=== PATIENT | female | born 1990 | race Caucasian/White ===

== ENCOUNTER 2016-10-28 01:42 | Inpatient (IN) | payer BC ==
[~2016-10-28] VITALS: Ht 162.6 cm; Wt 68.0 kg
[2016-10-28] MEDS ORDERED: PRENTAB26 PO (02:36)
[2016-10-28 02:37] VITALS: Ht 162.6 cm; Wt 68.0 kg
[2016-10-28] MEDS ORDERED: LACTATED RINGER'S 1000ML 1,000 ML IV PRN (02:52)
[2016-10-28] MEDS ORDERED: LACTATED RINGER'S 1000ML 1,000 ML IV SCH ×2 (02:52→09:39)
[2016-10-28] MEDS ORDERED: PENICILLIN G POTASSIUM IV 3 MU in DEXTROSE 5% 100ML 100 ML IV PRN (03:00)
[2016-10-28] MEDS ORDERED: PENICILLIN G POTASSIUM IV 6 MU in DEXTROSE 5% 250ML 250 ML IV STA (03:05)
[2016-10-28 03:12] LABS: HEMATOCRIT 40.8 % (37-47); MEAN CELL VOLUME 88.1 fL (80-100); MEAN CORPUSCULAR HEMOGLOBIN 30.5 pg (25-34); MEAN CORPUSCULAR HGB CONC 34.6 g/dl (32-36); PLATELET COUNT 186 K/uL (130-400); RED BLOOD COUNT 4.63 M/uL (4.2-5.4); WHITE BLOOD COUNT 14.93 K/uL (4.8-10.8)
[2016-10-28] MEDS ORDERED: EpHEDrine SULFATE INJ 50 MG/ML AMP ONE (04:23)
[2016-10-28] MEDS ORDERED: FENTANYL CITRATE INJ 50 MCG/1 ML 2 ML VIAL ONE (04:23)
[2016-10-28] MEDS ORDERED: FENTANYL 2MCG/ML ROPIV 1.25MG/ML 100ML BAG EPI ONE (04:23)
[2016-10-28] MEDS ORDERED: BUPIVACAINE 0.25% 30 ML VIAL ONE (04:23)
[2016-10-28] MEDS ORDERED: LACTATED RINGER'S 1000ML 500 ML IV PRN (04:24)
[2016-10-28] MEDS ORDERED: NALOXONE HCL INJ 1 MG in SODIUM CHLORIDE 0.9% 1000ML 1,000 ML IV PRN (04:24)
[2016-10-28] MEDS ORDERED: NALOXONE HCL INJ 0.4 MG/1 ML VIAL/CARP IV PRN (04:30)
[2016-10-28] MEDS ORDERED: ONDANSETRON INJ 2 MG/ML 2 ML VIAL IV PRN (04:30)
[2016-10-28] MEDS ORDERED: EpHEDrine SULFATE INJ 50 MG/ML AMP IV PRN (04:30)
[2016-10-28] MEDS ORDERED: FENTANYL 2MCG/ML ROPIV 1.25MG/ML 100ML BAG EPI PRN (04:30)
[2016-10-28] MEDS ORDERED: NALBUPHINE HCL INJ 10 MG/ML AMP IV PRN (04:30)
[2016-10-28] MEDS ORDERED: DiphenhydrAMINE HCL 50 MG/ML VIAL IV PRN (04:30)
--- NOTE | 2016-10-28 08:24 | Progress Note ---
Progress Note Date of Service Oct 28, 2016. Progress Note patient admitted in active labor. GBS is positive. FHT Cat 1. Patient received 2 doses of antibiotics and has an epidural. She is now completely dilated and is laboring down and will be starting to push soon.
[2016-10-28] MEDS ORDERED: OXYTOCIN 30 UNITS/500ML NSS IV ONE (08:57)
[2016-10-28] MEDS ORDERED: HYDROCORTISONE ACETATE 25 MG SUPP PR PRN (09:45)
[2016-10-28] MEDS ORDERED: SUPERCREAM 0.870 % 15GM JAR EXT PRN (09:45)
[2016-10-28] MEDS ORDERED: LANOLIN OINT EXT PRN ×2 (09:45)
[2016-10-28] MEDS ORDERED: OXYTOCIN 30 UNITS/500ML NSS IV PRN (09:45)
[2016-10-28] MEDS ORDERED: BENZOCAINE 20% AER SPR 82.5 GM CAN EXT PRN (09:45)
[2016-10-28] MEDS ORDERED: ACETAMINOPHEN/CODEINE 300/30MG TAB PO PRN ×2 (09:45)
[2016-10-28] MEDS ORDERED: ACETAMINOPHEN 325 MG TAB PO PRN (09:45)
[2016-10-28] MEDS ORDERED: IBUPROFEN 600 MG TAB PO PRN (09:45)
--- NOTE | 2016-10-28 09:46 | Vaginal Delivery Summary ---
Vaginal Delivery Summary Delivery Note live male over intact perineum LOS Apgars 9/10. Delayed cord clamping and cord blood obtained. Placenta delivered spontaneously and intact. No tears. EBL 200 ml. Final sponge and instrument count are correct. Mom and baby stable.
--- NOTE | 2016-10-28 12:36 | Anesthesia Procedure Note ---
Anesthesia Epidural Removal Nt Date & Time Oct 28, 2016 at 12:36 Vital Signs Pain Intensity: 0.0 Notes Mental Status: alert / awake / arousable, participated in evaluation Nausea / Vomiting: adequately controlled Pain: adequately controlled Airway Patency, RR, SpO2: stable & adequate BP & HR: stable & adequate Hydration State: stable & adequate Neuraxial Anesthesia: was administered Anesthetic Complications: no major complications apparent, pt satisfied with anesthetic care Epidural: removed without complications, with tip intact
[2016-10-28 12:50] VITALS: BP 118/69; PULSE 98; TEMP 36.8
[2016-10-28 15:15] VITALS: BP 115/74; PULSE 70; TEMP 36.7; O2SAT 98
[2016-10-28 19:40] VITALS: BP 126/84; PULSE 76; TEMP 36.8; O2SAT 99
[2016-10-28] MEDS: DOCUSATE SODIUM 100 MG CAP PO SCH (19:48)
[2016-10-29 01:20] VITALS: BP 128/83; PULSE 72; TEMP 36.7
[2016-10-29 04:10] VITALS: BP 129/86; PULSE 71; TEMP 36.7
[2016-10-29 06:49] LABS: HEMATOCRIT 34.5 % (37-47)
[2016-10-29 08:04] VITALS: BP 125/83; PULSE 61; TEMP 36.7; O2SAT 97
[2016-10-29] MEDS: DOCUSATE SODIUM 100 MG CAP PO SCH ×2 (08:26→20:12)
[2016-10-29] MEDS: FERROUS SULFATE 325 MG TAB PO SCH (08:26)
[2016-10-29] MEDS: PRENATAL VITAMIN TAB PO SCH (08:26)
--- NOTE | 2016-10-29 08:37 | OB/GYN Progress Note ---
PA[employer]ER Progress Note Date of Service Oct 29, 2016. Subjective conversation w/ patient, physical exam Ambulation: ambulating normally Voiding: no voiding problems Passing Gas: Yes Diet Tolerance: Regular Diet Lochia: Moderate Feeding Type: Breast Feeding Review of Systems Constitutional: No fever, No chills, No sweats, No weight loss, No weakness, No fatigue, No problem reported Respiratory: No cough, No sputum, No wheezing, No shortness of breath, No dyspnea on exertion, No dyspnea at rest, No hemoptysis, No problem reported Cardiac: No chest pain, No orthopnea, No PND, No edema, No claudication, No palpitations, No problem reported Breast: No see HPI, No breast lump, No change in shape, No nipple discharge, No breast pain, No problem reported Abdomen: No pain, No nausea, No vomiting, No diarrhea, No constipation, No GI bleeding, No problem reported Female : No see HPI, No dysuria, No urinary frequency, No hematuria, No incontinence, No abnormal vaginal bleeding, No vaginal discharge, No problem reported Objective Vital Signs Date Time Temp Pulse Resp B/P (MAP) Pulse Ox O2 Delivery O2 Flow Rate FiO2 10/29/16 04:10 36.7 71 16 129/86 (100) 10/29/16 01:20 Room Air 10/29/16 01:20 36.7 72 18 128/83 (98) Room Air 10/28/16 19:40 36.8 76 16 126/84 (98) 99 Room Air 10/28/16 15:15 Room Air 10/28/16 15:15 36.7 70 16 115/74 (88) 98 Room Air 10/28/16 12:50 Room Air 10/28/16 12:50 36.8 98 16 118/69 (85) Physical Exam General Appearance: WELL-APPEARING, WD/WN, NO APPARENT DISTRESS Respiratory/Chest: chest non-tender Cardiovascular: regular rate, rhythm Abdomen: normal bowel sounds Fundus: Firm Incision Description: Clean, Dry & Intact Extremities: normal range of motion Laboratory Results Last 24 Hours Test 10/29/16 06:32 Hemoglobin 11.7 g/dL Hematocrit 34.5 % Assessment and Plan Day Number: 1 Continue Routine Care: PPD #1 Pt doing well No complaints anticipate d/c tomorrow
[2016-10-29] MEDS ORDERED: DIPHTHERIA/TETANUS/PERTUSSIS 0.5 ML SYR/VIAL IM. ONE (09:00)
[2016-10-29] MEDS ORDERED: MEASLES, MUMPS & RUBELLA VIRUS VIAL SQ. ONE (09:00)
[2016-10-29 17:10] VITALS: BP 137/86; PULSE 62; TEMP 36.9; O2SAT 98
[2016-10-29] MEDS ORDERED: BISACODYL 5 MG TABEC PO SCH (20:00)
[2016-10-29 23:45] VITALS: BP 124/77; PULSE 60; TEMP 36.8
[2016-10-30] MEDS ORDERED: BISACODYL 10 MG SUPP PR PRN (07:00)
[2016-10-30 07:27] VITALS: BP 123/83; PULSE 74; TEMP 36.4; O2SAT 96
[2016-10-30] MEDS: PRENATAL VITAMIN TAB PO SCH (07:39)
[2016-10-30] MEDS: FERROUS SULFATE 325 MG TAB PO SCH (07:39)
[2016-10-30] MEDS: DOCUSATE SODIUM 100 MG CAP PO SCH (07:39)
--- NOTE | 2016-10-30 08:39 | OB/GYN Progress Note ---
[employer] Progress Note Date of Service Oct 30, 2016. Subjective conversation w/ patient, physical exam Ambulation: ambulating normally Voiding: no voiding problems Passing Gas: Yes Diet Tolerance: Regular Diet Lochia: Moderate Feeding Type: Breast Feeding Pain: 04/24 Notes: Doing well, no concerns. Pain well controlled. Lochia decreasing. Tolerating regular diet. Ambulating without difficulty. Would like to go home today. Objective Vital Signs Date Time Temp Pulse Resp B/P (MAP) Pulse Ox O2 Delivery O2 Flow Rate FiO2 10/30/16 07:27 36.4 74 20 123/83 (96) 96 Room Air 10/29/16 23:45 Room Air 10/29/16 23:45 36.8 60 20 124/77 (93) Room Air 10/29/16 17:10 36.9 62 18 137/86 (103) 98 Room Air 10/29/16 17:10 98 Room Air Physical Exam General Appearance: WELL-APPEARING Respiratory/Chest: chest non-tender, lungs clear Cardiovascular: regular rate, rhythm Abdomen: normal bowel sounds, soft Fundus: Firm Extremities: normal range of motion, non-tender, no calf tenderness Assessment and Plan Day Number: 2 Continue Routine Care: -D/C home today -F/U in 6 weeks.
--- NOTE | 2016-10-30 08:40 | Discharge Instructions ---
Discharge Instructions Date of Service Oct 30, 2016. Admission Reason for Admission: Term In Labor Discharge Discharge Diagnosis / Problem: Vaginal Delivery Discharge Goals Goal(s): Routine recovery after delivery Medications Continue Dispensed Medications: supercream, dermaplast, tucks, lansinoh Activity Recommendations Activity Limitations: per Instructions/Follow-up section . Instructions / Follow-Up Instructions / Follow-Up ACTIVITY RECOMMENDATIONS: * Gradual return to full activity over the next 2-3 weeks. * No lifting - nothing heavier than baby over the next 2-3 weeks. * Do not engage in vigorous exercise, sexual activity or sports until cleared by your physician. * Do not drive or operate any motorized equipment until cleared by your physician. * You may shower/bathe daily. BREAST CARE: If you are not breast feeding: * Wear a supportive bra 24 hours a day for one to two weeks. * Avoid stimulating your breasts and nipples as much as possible during the first few weeks after delivery. * When taking a shower, have the warm water hit your back, not breasts. * When your breasts feel full, apply ice packs. Usually three to four times a day helps ease the discomfort. * Take a mild pain medication (Tylenol/Motrin) when you are uncomfortable. If breast feeding: * Use breast milk to lubricate nipples. Lansinoh cream may be used for sore nipples. You do not need to remove cream prior to breast feeding. If using a different brand of cream, check the label for directions regarding removal of cream prior to nursing. * Wear a supportive bra. * If having problems with breasts or breast feeding, call a quality consultant or your health care provider. EPISIOTOMY CARE: After delivery, if you have an episiotomy (stitches), the following steps will ease discomfort and aid healing. * For the first 24 hours after delivery, place ice packs next to your episiotomy to help reduce swelling. * After the first 24 hour-period, sitz baths, either portable or in the tub, are suggested. A shower with a shower arm sprayed over the episiotomy may be comforting. * Leida care should be done after each voiding and bowel movement. Squirt warm water from a plastic bottle over the perineum (region of the body between the anus and urinary opening) and pat dry. * Use Dermoplast to ease discomfort. Shake container. [place] directly over the episiotomy. * Place a Tucks on a clean sanitary pad next to your episiotomy. OVER THE COUNTER MEDICATION: * For discomfort or pain, you may use Acetaminophen (Tylenol), Ibuprofen (Advil ), or Naproxen (Aleve) following the package directions. * For constipation you may use Colace following the package directions. SPECIAL CARE INSTRUCTIONS: When you are discharged from the hospital, it is important for you to follow the instructions listed below: * During the first week at home, you should be able to care for yourself and your baby. In addition, the usual light household activities are encouraged. * Limit your activities to the way you feel. Do not try to clean the house or move furniture. Be sensible. * If you actively engage in sports and have done so up until the time of your delivery, you may resume these activities as soon as you feel able. This may take up to one month or even longer. Use good judgment. * Continue to take your vitamins for at least six weeks after the of your baby. * Your diet need not be limited unless you were on a special diet before your delivery. Breast-feeding mothers need around 2500 calories per day and at least 64-80 ounces of fluid per day (8 to 10 glasses). * You should eat foods from the four major food groups. Crash diets or fad diets are to be avoided. Eating lean meats, fresh fruits and vegetables, low-fat dairy products, high fiber foods and a regular exercise program, will help you get back to your pre- weight without putting your health at risk. * Constipation is sometimes a problem after delivery. Take a mild laxative as needed. If breast feeding, Milk of Magnesia is acceptable to use. You may use a suppository or Fleets enema if no episiotomy. * A daily shower or tub bath is suggested. Be sure to thoroughly and gently dry the perineum. * A bloody vaginal discharge will usually continue until around four weeks post . A small amount of bleeding may continue for as long as six weeks. Vaginal discharge changes from the bright red bleeding after delivery to pink then brownish and finally yellowish-pink before becoming white and disappearing. * Bleeding may increase with activity. Your first period may come in 4-8 weeks. If you are breast feeding, your period may be delayed even longer. * [place] (sex) can begin whenever both you and your partner feel comfortable and do not have any form of genital infection. It is recommended that you wait until after your return appointment and discuss with your physician. If you have questions, please talk to your health care practitioner. A condom should be used to prevent infection and . * Foreplay, gentle intercourse and lubrication is very important the first several times to prevent pain. A water-based lubricant such as K-Y jelly or Astroglide may be used. * Tampons may be used six weeks after delivery. * Douching should be avoided for 6 weeks after delivery. * If you have RH negative blood and your baby is RH positive, you will receive RHOGAM by injection prior to discharge. The nurse will give you a card to keep with you that has the date and place that you received RHOGAM after delivery. * During your care, you had a Rubella screen done to check for the presence of rubella antibodies in your blood. If your test was negative, you will receive a Rubella vaccine prior to discharge. This vaccine may cause a fever, soreness at the injection site and flu-like symptoms. If these symptoms persist, notify your health care practitioner. is not advised for three months after a Rubella vaccine. There is a higher chance of having a baby with defects if conceived within three months of getting the vaccine. * If you were discharged 24 hours from delivery or before 48 hours: Visiting nurses will come to your home 48 hours after discharge to assess you and your baby. The visiting nurse will meet with you while you are in the hospital to arrange a time and get directions to your home. * Verbalizes understanding of car seat law as reviewed with patient nursing. * Car Seat hand-out given and reviewed with patient by nursing. * Shaken baby information reviewed with patient by nursing. Call you doctor if: * Heavy bleeding (saturating several pads an hour) or passing clots the size of your fist. * A fever >101 degrees F (38.3 degrees C) on two occasions four hours apart and/or chills. * Unusual pain in the pelvic or vaginal areas. * "Baby Blues" lasting longer than two weeks. If you have any questions or concerns, call your health care practitioner at . FOLLOW-UP VISIT: * Please call the office at to schedule a 6 week examination. It is important you keep this appointment. * It is important for you to make arrangements for either yearly or twice yearly check-ups thereafter. Current Hospital Diet Patient's current hospital diet: Regular OB Diet Discharge Diet Recommended Diet: Regular OB Diet Pending Studies Studies pending at discharge: no Medical Emergencies . Who to Call and When: Medical Emergencies: If at any time you feel your situation is an emergency, please call 911 immediately. . Non-Emergent Contact Non-Emergency issues call your: Primary Care Provider, Circulation Man . . "Provider Documentation" section prepared by Hossein Ribeiro. . VTE Core Measure Inpt VTE Proph given/why not?: Treatment not indicated
[2016-10-30 10:45] VITALS: BP_DIAS 83; PULSE 74; TEMP 36.4
== END 2016-10-30 11:15 | disposition home or self-care (01) | DRG 775 ==
LOC: C.LD 01:42 → C.OPB 01:42 → C.LD 02:56 → C.OBG 13:01
PROVIDERS: ADMIT Obstetrics & Gynecology; ATTEND Obstetrics & Gynecology
PROC: 4A1HXFZ Monitoring of Products of Conception, Cardiac Rhythm, External Approach (ICD-10-PCS; principal; 2016-10-28)
PROC: 10E0XZZ Delivery of Products of Conception, External Approach (ICD-10-PCS; principal; 2016-10-28)
DX: O99.824 Streptococcus B carrier state complicating childbirth (principal); Z3A.40 40 weeks gestation of pregnancy; Z37.0 Single live birth

== ENCOUNTER 2018-11-01 23:55 | Inpatient (IN) ==
[2018-11-02] MEDS ORDERED: LACTATED RINGER'S 1,000 ML IV PRN (00:18)
[2018-11-02] MEDS ORDERED: PENICILLIN G POTASSIUM 3 MU in DEXTROSE 5% 100 ML IV PRN (00:18)
[2018-11-02] MEDS ORDERED: OXYTOCIN 30 UNITS/500 ML BAG IV PRN ×2 (00:18→01:23)
[2018-11-02] MEDS ORDERED: PENICILLIN G POTASSIUM 6 MU in DEXTROSE 5% 250 ML IV STA (00:29)
[2018-11-02 00:46] LABS: Hematocrit (blood only) 38.9 % (37-47); Hemoglobin 13.4 g/dL (12.0-16.0); Mean Corpuscular Volume 85.7 fL (80-100); Mean Platelet Volume 11.4 fL (7.4-10.4); Platelet Count 195 K/uL (130-400); RDW Coefficient of Variation 14.1 % (11.5-14.5); RDW Standard Deviation 43.7 fL (36.4-46.3); Red Blood Count 4.54 M/uL (4.2-5.4); White Blood Count 10.29 K/uL (4.8-10.8)
[2018-11-02 00:55] LABS: Mean Corpuscular Hgb Conc 34.4 g/dL (32-36)
[2018-11-02] MEDS ORDERED: METHYLERGONOVINE MALEATE 0.2 MG/ML AMP ONE (01:14)
[2018-11-02] MEDS ORDERED: METHYLERGONOVINE MALEATE 0.2 MG/ML AMP IM ONE (01:23)
[2018-11-02] MEDS ORDERED: SUPERCREAM 0.870% 15 GM JAR EXT PRN (01:23)
[2018-11-02] MEDS ORDERED: BENZOCAINE 20% AER SPR 82.5 GM CAN EXT PRN (01:23)
[2018-11-02] MEDS ORDERED: OXYCODONE/ACETAMINOPHEN 5mg/325mg TAB PO PRN (01:23)
[2018-11-02] MEDS ORDERED: BISACODYL 10 MG SUPP PR PRN (01:23)
[2018-11-02] MEDS ORDERED: ACETAMINOPHEN 325 MG TAB PO PRN (01:23)
[2018-11-02] MEDS ORDERED: ACETAMINOPHEN W/CODEINE #3 1 TAB PO PRN (01:23)
[2018-11-02] MEDS ORDERED: HYDROCORTISONE ACETATE 25 MG SUPP PR PRN (01:23)
[2018-11-02] MEDS: PRENATAL VITAMIN 1 TAB PO SCH (09:18)
[2018-11-02] MEDS: DOCUSATE SODIUM 100 MG CAP PO SCH ×2 (09:18→20:16)
--- NOTE | 2018-11-02 11:26 | Operative Report ---
DATE OF OPERATION: 11/02/2018 DELIVERY NOTE The patient is a 2, para 2, good general health, under due date, term , was admitted in active labor, 4 cm dilated, membranes paper thin. She is group B strep positive. Medication was started before we could get an epidural and membranes ruptured surgically, pushed out a live female via direct occiput anterior position over an intact perineum. Infant was suctioned through the mouth and the nose. Baby was delivered without difficulty. We let the cord pulse for several minutes then when it stopped, we clamped it, cut it. Cord blood was taken. With IV Pitocin running, the placenta was removed intact. Very small superficial laceration of the perineum was repaired under local with a running 3-0 chromic. Following this, vag exam revealed no hematoma formation or sponges in the vagina. ESTIMATED BLOOD LOSS: 100 mL. I attest to the content of the Intraoperative Record and any orders documented therein. Any exception s are noted below.
[2018-11-02] MEDS ORDERED: BISACODYL 5 MG TABEC PO SCH (20:00)
[2018-11-03 06:25] LABS: Hematocrit (blood only) 38.3 % (37-47); Hemoglobin 13.1 g/dL (12.0-16.0); Mean Corpuscular Hgb Conc 34.2 g/dL (32-36); Mean Corpuscular Volume 86.7 fL (80-100); Platelet Count 175 K/uL (130-400); RDW Coefficient of Variation 14.4 % (11.5-14.5); RDW Standard Deviation 45.3 fL (36.4-46.3); Red Blood Count 4.42 M/uL (4.2-5.4); White Blood Count 11.93 K/uL (4.8-10.8)
--- NOTE | 2018-11-03 08:16 | Obstetrical Progress Note ---
Date of Service November 03, 2018 Subjective Patient is seen and examined. She feels well, no complaints. Ambulating without dizziness Voiding without difficulty Tolerating regular diet with out N&V Bleeding is minimal No fever/ chills/ CP/ SOB/ N&V/ Leg pain Breast feeding without problems Vital Signs Temp Pulse Pulse Resp BP BP Pulse Ox 11/03/18 00:00 36.6 C 53 L 18 116/78 11/02/18 20:15 36.8 C 58 L 20 129/84 96 11/02/18 14:35 36.8 C 69 16 121/72 11/02/18 12:25 37.2 C 61 16 143/89 H 11/02/18 08:38 36.7 C 61 16 117/73 11/03/18 11/02/18 Range/Units 05:54 06:11 WBC 11.93 H (4.8-10.8) K/uL RBC 4.42 (4.2-5.4) M/uL Hgb 13.1 (12.0-16.0) g/dL Hct 38.3 (37-47) % MCV 86.7 (80-100) fL MCH 29.6 (25-34) pg MCHC 34.2 (32-36) g/dL RDW Std Deviation 45.3 (36.4-46.3) fL RDW Coeff of Lisa 14.4 (11.5-14.5) % Plt Count 175 (130-400) K/uL MPV 12.0 H (7.4-10.4) fL Blood Type A Negative Antibody Screen NEGATIVE Screen Negative (Negative) PE: General: Alert, orientedx3, NAD Abd: soft, NT, fundus firm, below Umbilicus Perineum intact, Lochia rubra minimal Ext; NT, no edema AP: 28 yo s/p , ppd# 1 VSS Afebrile doing well Continue routine care All questions were answered D/C home tomorrow Results & Data Vital Signs (Past 12 Hours) Vital Signs Temp Pulse Resp BP 11/03/18 00:00 36.6 C 53 L 18 116/78
[2018-11-03] MEDS: DOCUSATE SODIUM 100 MG CAP PO SCH ×2 (08:24→20:01)
[2018-11-03] MEDS: PRENATAL VITAMIN 1 TAB PO SCH (08:24)
[2018-11-03] MEDS: IBUPROFEN 600 MG TAB PO PRN ×2 (08:24→20:01)
[2018-11-03] MEDS ORDERED: DIPHTHERIA/TETANUS/PERTUSSIS 0.5 ML SYR/VIAL IM ONE (09:00)
[2018-11-04 07:03] LABS: Hematocrit (blood only) 39.1 % (37-47); Hemoglobin 13.3 g/dL (12.0-16.0)
[2018-11-04] MEDS: IBUPROFEN 600 MG TAB PO PRN (08:16)
[2018-11-04] MEDS: PRENATAL VITAMIN 1 TAB PO SCH (08:16)
[2018-11-04] MEDS: DOCUSATE SODIUM 100 MG CAP PO SCH (08:16)
--- NOTE | 2018-11-04 09:05 | Obstetrical Progress Note ---
Date of Service November 04, 2018 Subjective doing fine Physical Exam Constitutional: WD/WN, vitals as above comfortable abdomen soft fundus firm no edema neg Geri's for discharge today Results & Data Vital Signs (Past 12 Hours) Vital Signs Temp Pulse Pulse Resp BP Pulse Ox 11/04/18 08:09 36.6 C 60 65 18 115/76 96 11/04/18 07:29 36.6 C 60 18 115/76 96 11/04/18 00:05 36.4 C L 72 18 113/76 99 Laboratory Results Laboratory Results - last 48 hr 11/03/18 11/04/18 05:54 06:18 WBC 11.93 H RBC 4.42 Hgb 13.1 13.3 Hct 38.3 39.1 MCV 86.7 MCH 29.6 MCHC 34.2 RDW Std Deviation 45.3 RDW Coeff of Lisa 14.4 Plt Count 175 MPV 12.0 H
== END 2018-11-04 09:50 | disposition home or self-care (01) | DRG 807 ==
LOC: OPB 23:55 → 4S1 23:57 → 4S2 11-02 04:17

== ENCOUNTER 2020-12-29 03:28 | Inpatient (IN) ==
[2020-12-29] MEDS ORDERED: LACTATED RINGER'S 1,000 ML IV PRN (06:35)
[2020-12-29] MEDS ORDERED: OXYTOCIN 30 UNITS/500 ML BAG IV PRN ×2 (06:35→07:27)
[2020-12-29 07:00] LABS: Hematocrit (blood only) 38.4 % (37-47); Hemoglobin 13.4 g/dL (12.0-16.0); Mean Corpuscular Hemoglobin 30.8 pg (25-34); Mean Corpuscular Hgb Conc 34.9 g/dL (32-36); Mean Corpuscular Volume 88.3 fL (80-100); Mean Platelet Volume 11.2 fL (7.4-10.4); Platelet Count 219 K/uL (130-400); RDW Coefficient of Variation 13.8 % (11.5-14.5); RDW Standard Deviation 44.9 fL (36.4-46.3); Red Blood Count 4.35 M/uL (4.2-5.4); White Blood Count 11.51 K/uL (4.8-10.8)
[2020-12-29] MEDS ORDERED: HYDROCORTISONE ACETATE 25 MG SUPP PR PRN (07:27)
[2020-12-29] MEDS ORDERED: IBUPROFEN 600 MG TAB PO PRN (07:27)
[2020-12-29] MEDS ORDERED: MEASLES, MUMPS & RUBELLA VIRUS VIAL SQ ONE (07:27)
[2020-12-29] MEDS ORDERED: DIPHTHERIA/TETANUS/PERTUSSIS 0.5 ML SYR/VIAL IM ONE (07:27)
[2020-12-29] MEDS ORDERED: ACETAMINOPHEN 325 MG TAB PO PRN (07:27)
[2020-12-29] MEDS ORDERED: BENZOCAINE 20% AER SPR 82.5 GM CAN EXT PRN (07:27)
[2020-12-29] MEDS ORDERED: SUPERCREAM 0.870% 15 GM JAR EXT PRN (07:27)
[2020-12-29] MEDS ORDERED: bisacodyL 10 MG SUPP PR PRN (07:27)
[2020-12-29] MEDS ORDERED: PRENATAL VITAMIN 1 TAB PO SCH (08:00)
[2020-12-29] MEDS ORDERED: FERROUS SULFATE 325 MG TAB PO SCH (08:00)
--- NOTE | 2020-12-29 08:41 | Delivery Summary ---
DATE OF DELIVERY: 12/29/2020. TIME: 7:13 a.m. DETAILS OF ADMISSION AND DELIVERY: A 30-year-old, G3, P2-0-0-2 at 40 weeks of gestation, who presented to labor and delivery this morning for labor check. Her first check was 3 cm, 50% effaced, -2 station and her cervix changed to 4-5 cm, 90% effaced with a bulging bag in 2 hours. She was admitted. She then quickly progressed to full dilatation, spontaneously ruptured and wanted to push. She pushed only once and delivered the head without difficulty. There was a nuchal cord around the neck x1 which was reduced. Shoulders were delivered with minimal traction. Baby was handed off to the mother where mouth and nose were suctioned. Cord was clamped x2 and cut at 1 minute delay. Baby was vigorously moving and crying at that point. There was a true knot on the cord as well. Vagina and perineum were checked for lacerations. They were intact. No lacerations were found and placenta was found to be in the vagina, delivered spontaneous as intact and complete. Uterus was explored and found to be empty. Fundus was firm. Lower segment was cleared of all clots and debris. EBL was 200 mL. Mom and baby tolerated the procedure well. Baby was a viable female infant, Apgars 8/9, weight is pending. No complications happened. I was present during the whole procedure. At the end of the procedure, sponge and instrument count was correct x2. Job ID: [id number] [facility]
[2020-12-29] MEDS: DOCUSATE SODIUM 100 MG CAP PO SCH (20:00)
[2020-12-30 06:36] LABS: Hematocrit (blood only) 31.2 % (37-47); Hemoglobin 10.6 g/dL (12.0-16.0); Mean Corpuscular Volume 88.4 fL (80-100); Mean Platelet Volume 11.2 fL (7.4-10.4); Platelet Count 160 K/uL (130-400); RDW Coefficient of Variation 14.3 % (11.5-14.5); RDW Standard Deviation 46.4 fL (36.4-46.3); Red Blood Count 3.53 M/uL (4.2-5.4); White Blood Count 11.52 K/uL (4.8-10.8)
--- NOTE | 2020-12-30 08:14 | Obstetrical Progress Note ---
Date of Service December 30, 2020 Subjective Ambulation: ambulating normally Voiding: no voiding problems Diet Tolerance:: regular diet Feeding Type:: breast feeding Current Pain Level(1-10): 0 doing well plans for d/c Physical Exam Constitutional WD/WN, vitals as above well developed and comfortable abdomen soft fundus firm no edema neg Geri's for d/c Results & Data ([facility]) Vital Signs (Past 12 Hours) Vital Signs Temp Pulse Resp BP Pulse Ox 12/30/20 03:25 36.6 C 58 L 16 122/70 97 12/29/20 23:30 36.5 C 60 16 119/83 97 Laboratory Results 12/29/20 12/29/20 12/29/20 06:40 07:02 07:02 WBC 11.51 H RBC 4.35 Hgb 13.4 Hct 38.4 MCV 88.3 MCH 30.8 MCHC 34.9 RDW Std Deviation 44.9 RDW Coeff of Lisa 13.8 Plt Count 219 MPV 11.2 H COVID-19 Eval [facility] SARS-CoV-2, RNA, NAAT NEGATIVE Blood Type Antibody Screen Screen 12/29/20 12/30/20 10:17 06:21 WBC 11.52 H RBC 3.53 L Hgb 10.6 L Hct 31.2 L MCV 88.4 MCH 30.0 MCHC 34.0 RDW Std Deviation 46.4 H RDW Coeff of Lisa 14.3 Plt Count 160 MPV 11.2 H COVID-19 Eval Order SARS-CoV-2, RNA, NAAT Blood Type A Negative Antibody Screen NEGATIVE Screen Negative
[2020-12-30] MEDS: DOCUSATE SODIUM 100 MG CAP PO SCH (08:21)
[2020-12-30] MEDS ORDERED: bisacodyL 5 MG TABEC PO SCH (20:00)
== END 2020-12-30 10:20 | disposition home or self-care (01) | DRG 807 ==
LOC: OPB 03:28 → 4S1 03:30 → 4S2 11:28